=== PATIENT | female | born 1955 | race Caucasian/White ===

== ENCOUNTER 2019-10-04 09:25 | Outpatient (RCR) | payer MEDICARE, MEDICAID ==
[2019-10-04 10:41] LABS: BASOPHILS % (AUTO) 1 % (0-10); EOSINOPHILS # (AUTO) 0.3 10^3/uL (0.0-0.3); EOSINOPHILS % (AUTO) 6 % (0-10); HEMATOCRIT 34 % (35-52); HEMOGLOBIN 10.8 G/DL (11.5-16.0); LYMPHOCYTES # (AUTO) 1.6 X 10^3 (1.0-4.0); LYMPHOCYTES % (AUTO) 32 % (12-44); MEAN CORPUSCULAR HEMOGLOBIN 31 PG (25-34); MEAN CORPUSCULAR HGB CONC 32 G/DL (32-36); MEAN CORPUSCULAR VOLUME 97 FL (80-99); MEAN PLATELET VOLUME 10.5 FL (7.4-10.4); MONOCYTES # (AUTO) 0.3 X 10^3 (0.0-1.0); MONOCYTES % (AUTO) 7 % (0-12); NEUTROPHILS # (AUTO) 2.8 X 10^3 (1.8-7.8); NEUTROPHILS % (AUTO) 55 % (42-75); PLATELET COUNT 163 10^3/uL (130-400); RED CELL DISTRIBUTION WIDTH 26.2 % (10.0-14.5); WHITE BLOOD COUNT 5.1 10^3/uL (4.3-11.0)
[2019-10-04 10:56] LABS: ALANINE AMINOTRANSFERASE 15 U/L (0-55); ALBUMIN 3.8 GM/DL (3.2-4.5); ALKALINE PHOSPHATASE 82 U/L (40-136); BILIRUBIN,TOTAL 0.5 MG/DL (0.1-1.0); BUN/CREATININE RATIO 18; CALCIUM 8.9 MG/DL (8.5-10.1); CARBON DIOXIDE 26 MMOL/L (21-32); CHLORIDE 106 MMOL/L (98-107); CREATININE SERUM 0.68 MG/DL (0.60-1.30); GFR ESTIMATED > 60; GLUCOSE 107 MG/DL (70-105); POTASSIUM 4.1 MMOL/L (3.6-5.0); SODIUM 139 MMOL/L (135-145); TOTAL PROTEIN 7.2 GM/DL (6.4-8.2)
[2019-10-04 11:14] LABS: LYMPHOCYTES % (MANUAL) 33 %; NEUTROPHILS % (MANUAL) 49 %
[2019-10-04 11:15] LABS: BASOPHILS % (MANUAL) 1 %; EOSINOPHILS % (MANUAL) 2 %; METAMYELOCYTES % 1 %; MONOCYTES % (MANUAL) 6 %
[2019-10-04 11:16] LABS: ATYPICAL LYMPHOCYTES 4 %; HYPOCHROMASIA SLIGHT; MYELOCYTES % 1 %; NUCLEATED RED BLOOD CELLS 3; POLYCHROMASIA SLIGHT; TARGET CELLS SLIGHT
== END 2020-01-02 | disposition home or self-care (01) ==
LOC: ONC 09:25
PROVIDERS: ATTEND Internal Medicine Hematology & Oncology
DX: C18.2 Malignant neoplasm of ascending colon (principal); M19.91 Primary osteoarthritis, unspecified site; F17.210 Nicotine dependence, cigarettes, uncomplicated; Z79.899 Other long term (current) drug therapy; K74.60 Unspecified cirrhosis of liver; R16.1 Splenomegaly, not elsewhere classified; Z86.19 Personal history of other infectious and parasitic diseases; Z96.651 Presence of right artificial knee joint
CPT/HCPCS: 80053; 82105; 82378; 85007; 85027; 99214

== ENCOUNTER → 2019-10-10 | Outpatient (CLI) | payer MEDICARE, MEDICAID ==
[~2019-10-10] MED LIST: CATHETER FLUSH 10 ML SYR IV PRN; HOLD METFORMIN - RECEIVED CONTRAST 20 ML VIAL IV SCH; IOHEXOL 350 MG/ML 100 ML (OMNIPAQUE 350) VIAL IV ONE; NS 100 ML (IVPB) BAG IV ONE
--- NOTE | 2019-10-10 14:05 | Diagnostic Imaging Report ---
EXAMINATION: CT Chest with intravenous contrast, CT Abdomen and Pelvis without and with intravenous contrast. TECHNIQUE: Pre and post intravenous contrast axial imaging of the abdomen and pelvis and post contrast axial imaging of the chest were performed. All CT scans use one or more of the following dose optimizing techniques: automated exposure control, MA and/or KvP adjustment based on a patient size and exam type, or iterative reconstruction. HISTORY: Colon cancer COMPARISON: None available. FINDINGS: There is no edema or pneumonia. No pleural effusion. No pneumothorax. There is a vague area of groundglass in the left upper lobe measuring up to 11 mm (series 2, image 43). Heart size is normal. There are mild coronary artery calcifications. No pericardial effusion. Aorta is normal in caliber. There is no axillary or supraclavicular lymphadenopathy. There is no mediastinal lymphadenopathy. There is mild liver surface nodularity concerning for cirrhosis. There is no biliary ductal dilation. Gallbladder is surgically absent. Pancreas is normal. Spleen is enlarged. Adrenal glands are normal. Simple cyst is present in the left kidney. No suspicious renal lesions. There is no hydronephrosis. Urinary bladder is normal. Visualized bowel is normal in caliber without obstruction or inflammation. There has been a right hemicolectomy. No free fluid or air. No abdominal or pelvic lymphadenopathy. Aorta is normal in caliber without aneurysm. There are no suspicious osseus lesions. IMPRESSION: 1. No metastatic disease identified in the chest, abdomen or pelvis. 2. Vague left upper lobe groundglass nodule may be an infectious or inflammatory process. Three-month follow-up is recommended. 3. There is a cirrhotic morphology of the liver and the spleen is enlarged. Dictated by: Dictated on workstation # [id number]
== END ==
LOC: RAD FS 11:13
PROVIDERS: ATTEND Internal Medicine Hematology & Oncology
DX: C18.9 Malignant neoplasm of colon, unspecified (principal); R16.1 Splenomegaly, not elsewhere classified; R91.1 Solitary pulmonary nodule
CPT/HCPCS: 71260; 74178

== ENCOUNTER → 2020-03-06 | Outpatient (CLI) | payer MEDICARE, MEDICAID ==
--- NOTE | 2020-03-06 11:16 | Diagnostic Imaging Report ---
INDICATION: Left hip pain. FINDINGS: 2 views. There is end-stage arthritic disease with complete loss of joint space. There is flattening of the femoral head. There is sclerosis of the articulating surfaces of the acetabulum and femoral head with subcortical cystic change. No soft tissue calcifications about the hip. IMPRESSION: Advanced chronic arthritic disease left hip. No acute abnormalities. Dictated by: Dictated on workstation # [id number]
== END ==
LOC: RAD FS 09:46
PROVIDERS: ATTEND Nurse Practitioner Family
DX: M16.12 Unilateral primary osteoarthritis, left hip (principal)
CPT/HCPCS: 73502

== ENCOUNTER 2020-04-03 09:43 | Outpatient (RCR) | payer MEDICARE, MEDICAID ==
[2020-01-26 09:25] LABS: BUN/CREATININE RATIO 17; CALCIUM 8.8 MG/DL (8.5-10.1); CARBON DIOXIDE 27 MMOL/L (21-32); CHLORIDE 105 MMOL/L (98-107); CREATININE SERUM 0.71 MG/DL (0.60-1.30); GFR ESTIMATED > 60; GLUCOSE 87 MG/DL (70-105); SODIUM 139 MMOL/L (135-145)
[2020-04-03 10:13] LABS: BASOPHILS # (AUTO) 0.3 10^3/uL (0.0-0.1); BASOPHILS % (AUTO) 4 % (0-10); EOSINOPHILS # (AUTO) 0.3 10^3/uL (0.0-0.3); EOSINOPHILS % (AUTO) 3 % (0-10); HEMATOCRIT 29 % (35-52); HEMOGLOBIN 9.4 G/DL (11.5-16.0); LYMPHOCYTES # (AUTO) 2.2 X 10^3 (1.0-4.0); LYMPHOCYTES % (AUTO) 26 % (12-44); MEAN CORPUSCULAR HEMOGLOBIN 31 PG (25-34); MEAN CORPUSCULAR HGB CONC 32 G/DL (32-36); MEAN CORPUSCULAR VOLUME 95 FL (80-99); MONOCYTES # (AUTO) 1.1 X 10^3 (0.0-1.0); MONOCYTES % (AUTO) 13 % (0-12); NEUTROPHILS # (AUTO) 4.6 X 10^3 (1.8-7.8); NEUTROPHILS % (AUTO) 54 % (42-75); PLATELET COUNT 164 10^3/uL (130-400); WHITE BLOOD COUNT 8.5 10^3/uL (4.3-11.0)
[2020-04-03 10:35] LABS: ALANINE AMINOTRANSFERASE 25 U/L (0-55); ALBUMIN 3.9 GM/DL (3.2-4.5); ALKALINE PHOSPHATASE 105 U/L (40-136); BILIRUBIN,TOTAL 0.9 MG/DL (0.1-1.0); BUN/CREATININE RATIO 13; CARBON DIOXIDE 23 MMOL/L (21-32); CHLORIDE 103 MMOL/L (98-107); CREATININE SERUM 0.71 MG/DL (0.60-1.30); GFR ESTIMATED > 60; GLUCOSE 75 MG/DL (70-105); POTASSIUM 4.4 MMOL/L (3.6-5.0); SODIUM 137 MMOL/L (135-145); TOTAL PROTEIN 7.8 GM/DL (6.4-8.2)
== END 2020-04-25 | disposition home or self-care (01) ==
LOC: ONC 09:43
PROVIDERS: ATTEND Internal Medicine Hematology & Oncology
DX: C18.2 Malignant neoplasm of ascending colon (principal); M19.91 Primary osteoarthritis, unspecified site; F17.210 Nicotine dependence, cigarettes, uncomplicated; Z79.899 Other long term (current) drug therapy; K74.60 Unspecified cirrhosis of liver; R16.1 Splenomegaly, not elsewhere classified; Z86.19 Personal history of other infectious and parasitic diseases; Z96.651 Presence of right artificial knee joint
CPT/HCPCS: 80048; 80053; 82105; 82378; 85025; 99213

== ENCOUNTER → 2020-05-23 | Outpatient (CLI) | payer MEDICARE, MEDICAID ==
[~2020-05-23] MED LIST changes: -CATHETER FLUSH 10 ML SYR IV PRN; +CETI10TA17 PO; +ESCI20TA45 PO; -HOLD METFORMIN - RECEIVED CONTRAST 20 ML VIAL IV SCH; +HYDR50TA76 PO; -IOHEXOL 350 MG/ML 100 ML (OMNIPAQUE 350) VIAL IV ONE; +NAPR-1071 PO; +NITR100C PO; -NS 100 ML (IVPB) BAG IV ONE; +OMEP40CA27 PO; +PROM25TA14 PO
--- NOTE | 2020-05-23 11:11 | Diagnostic Imaging Report ---
INDICATION: Right elbow pain. Time of exam: 1006 AM 3 views of right elbow were obtained. Alignment is normal. There is a well-corticated osseous density anterior elbow, just anterior to the distal humerus best seen on the lateral view measuring 14 mm x 7 mm. This may represent an intra-articular loose body. No fractures are seen. There is no joint effusion. IMPRESSION: Probable loose body. No acute bony abnormality is detected. Dictated by: Dictated on workstation # [id number]
== END ==
LOC: RAD FS 09:49
PROVIDERS: ATTEND Nurse Practitioner Family
DX: M25.521 Pain in right elbow (principal)
CPT/HCPCS: 73080

== ENCOUNTER 2020-06-15 05:27 | Outpatient (RCR) | payer MEDICARE, MEDICAID ==
[~2020-06-15] VITALS: Ht 165 cm; Wt 102.0 kg
[~2020-06-15 05:27] MED LIST changes: +DESV25TA PO
== END 2020-06-15 12:01 | disposition home or self-care (01) ==
LOC: PREOP 05:27
PROVIDERS: ATTEND Surgery
DX: Z01.812 Encounter for preprocedural laboratory examination (principal); Z20.828 Contact with and (suspected) exposure to other viral communicable diseases
CPT/HCPCS: 87635

== ENCOUNTER 2020-06-19 06:49 | Day surgery (SDC) | payer MEDICARE, MEDICAID ==
[~2020-06-19] VITALS: Ht 165 cm; Wt 102.0 kg
[2020-06-19] VITALS (7 sets, daily range): BP systolic 92–132; BP diastolic 46–78
[2020-06-19] MEDS ORDERED: LACTATED RINGERS 1,000 ML IV ONE (07:56)
[2020-06-19] MEDS ORDERED: LACTATED RINGERS 1,000 ML IV PRN (08:00)
[2020-06-19] MEDS ORDERED: HURRICAINE EXT TUBE (BENZOCAINE) XX PRN (08:00)
[2020-06-19] MEDS ORDERED: MIDAZOLAM 2 MG/2 ML (VERSED) VIAL ONE (09:03)
[2020-06-19] MEDS ORDERED: PROPOFOL INJECTION 50 ML IV ONE (09:03)
[2020-06-19] MEDS ORDERED: proPOfol 200 MG/20 ML (DIPRIVAN) VIAL IV ONE (09:03)
[2020-06-19] MEDS ORDERED: HURRICAINE EXT TUBE (BENZOCAINE) ONE (09:27)
--- NOTE | 2020-06-19 09:45 | Progress Note-Post Operative ---
Post-Operative Progess Note Surgeon (s)/Build Engineer (s) Surgeon LYDIA MCCOLLUM DO Build Engineer: na Pre-Operative Diagnosis GERD, dysphagia, screening colonoscopy Post-Operative Diagnosis small hiatal hernia, GERD, colon polyp sigmoid x 2 Procedure & Operative Findings Date of Procedure 06/19/20 Procedure Performed/Findings EGD c biopsies, colonoscopy c cold biopsy polypectomy x2 Anesthesia Type per AUTOMOTIVE COLLISION ESTIMATOR Estimated Blood Loss Estimated blood loss (mL): none Specimens/Packing Specimens Removed antrum, GE junction, sigmoid polyps x2 LYDIA MCCOLLUM DO Jun 19, 2020 09:45
--- NOTE | 2020-06-19 09:47 | Discharge Inst-Simple/Standard ---
Discharge Inst-Standard Patient Instructions/Follow Up Plan of Care/Instructions/FU: 3 weeks Aileen Activity as Tolerated: No Discharge Diet: Regular Diet LYDIA MCCOLLUM DO Jun 19, 2020 09:47
--- NOTE | 2020-06-19 12:42 | Anesthesia-General Post-Op ---
MAC Patient Condition Mental Status/LOC: Same as Preop Cardiovascular: Satisfactory Nausea/Vomiting: Absent Respiratory: Satisfactory Pain: Controlled Complications: Absent Post Op Complications Complications None Follow Up Care/Instructions Patient Instructions None needed. Anesthesiology Discharge Order Discharge Order Patient is doing well, no complaints, stable vital signs, no apparent adverse anesthesia problems. No complications reported per nursing. CANDIS BAJWA CRNA Jun 19, 2020 12:42
--- NOTE | 2020-06-19 14:09 | OPERATIVE REPORT ---
DATE OF SERVICE: 06/19/2020 PREOPERATIVE DIAGNOSES: Gastroesophageal reflux disease, dysphagia, screening colonoscopy with history of colon cancer. POSTOPERATIVE DIAGNOSES: Small hiatal hernia, gastroesophageal reflux disease, colon polyps x2 of the sigmoid colon. PROCEDURE: EGD with biopsies, colonoscopy with cold biopsy polypectomy x2. SURGEON: Lydia Gallagher DO ANESTHESIA: Per CRITICAL CARE CNS. ESTIMATED BLOOD LOSS: None. COMPLICATIONS: None. SPECIMENS: Antrum, GE junction and sigmoid colon polyp x2. INDICATIONS: The patient is a 65-year-old female with history of colon cancer needing screening colonoscopy. She also has some GERD symptoms and dysphagia. She understands risks and benefits of procedure and wished to proceed with procedure. Consent was signed in the chart. DESCRIPTION OF PROCEDURE: The patient was taken to the endoscopy suite, placed in the left lateral recumbent position. Timeout was performed. Scope was inserted in mouth, down the esophagus, stomach and into the duodenum without difficulty. There were no polyps, masses or ulcerations within the duodenum. Scope was then slowly retracted back into the stomach where it was further insufflated. No polyps, masses or ulcerations. Biopsy of the antrum was obtained. Scope was retroflexed noting a small hiatal hernia, no other pathology. Scope was returned to its normal position, slowly withdrawn until completely removed into the distal esophagus. Biopsy of the GE junction was obtained. There were no polyps, masses or ulcerations. Scope was then slowly retracted back until completely removed. Digital rectal exam was performed. There were no palpable polyps, masses or ulcerations. Scope was inserted in the rectum, advanced all the way to the ileocolonic anastomosis. No polyps, masses or ulcerations. Prep was adequate except for some hard stool in the right colon, which was able to be moved around and the patient had a fairly adequate visualization of the right colon. Scope was then slowly retracted back. No polyps, masses or ulcerations from the ileocolonic anastomosis proximal to the transverse and descending colon. In the sigmoid colon, there were 2 very small minute polyps, which cold biopsy polypectomies were performed. Scope was then continuously retracted back into the rectum, where it was also retroflexed noting no other pathology. Scope was returned to its normal position, slowly withdrawn until completely removed. The patient tolerated procedure well without any complications. She was taken to recovery room in stable condition. RECOMMENDATIONS: The patient will continue on current medications. She will follow up on pathology. The patient will need repeat screening colonoscopy per guidelines. Any issues before that be seen at that time. The patient will follow up in the office in approximately 3 weeks to discuss symptoms and pathology. Job ID: [id number] DocumentID: [id number] Dictated Date: 06/19/2020 09:51:33 [employer] Date: 06/19/2020 14:09:14 Dictated By: LYDIA GALLAGHER DO
== END 2020-06-19 10:29 | disposition home or self-care (01) ==
LOC: ENDO 06:49
PROVIDERS: ATTEND Surgery
DX: Z12.11 Encounter for screening for malignant neoplasm of colon (principal); K63.5 Polyp of colon; K44.9 Diaphragmatic hernia without obstruction or gangrene; K21.00 Gastro-esophageal reflux disease with esophagitis, without bleeding; K29.50 Unspecified chronic gastritis without bleeding; J40 Bronchitis, not specified as acute or chronic; G62.9 Polyneuropathy, unspecified; F41.9 Anxiety disorder, unspecified; F32.9 Major depressive disorder, single episode, unspecified; K74.60 Unspecified cirrhosis of liver; F17.210 Nicotine dependence, cigarettes, uncomplicated; Z79.899 Other long term (current) drug therapy; Z88.8 Allergy status to other drugs, medicaments and biological substances; Z88.2 Allergy status to sulfonamides; Z88.1 Allergy status to other antibiotic agents; Z88.5 Allergy status to narcotic agent; Z91.013 Allergy to seafood; Z86.73 Personal history of transient ischemic attack (TIA), and cerebral infarction without residual deficits; Z85.038 Personal history of other malignant neoplasm of large intestine; Z82.49 Family history of ischemic heart disease and other diseases of the circulatory system; Z83.3 Family history of diabetes mellitus
CPT/HCPCS: 88305

== ENCOUNTER 2020-08-04 11:48 | Emergency (ER) | payer MEDICARE, MEDICAID ==
--- NOTE | 2020-08-04 12:41 | ED GI ---
General Chief Complaint: Abdominal/GI Problems Stated Complaint: ABD PAIN; COUGH; RUNNY NOSE Nursing Triage Note: Pt complaining of left sided abd pain. Pt states that she was able to have a bowel movement yesterday but hasn't had one yet today and is concerned. Sepsis Screen: No Definite Risk Source of Information: Patient History of Present Illness Date Seen by Provider: Aug 04, 2020 Time Seen by Provider: 11:56 Initial Comments 65-year-old female presenting with complaints of left-sided abdominal pain. She was feeling bloated and having trouble going to the bathroom. She states that she takes lactulose she has difficulty having a bowel movement. She has a history of colon cancer and despite having a recent colonoscopy where they only had 2 polyps that were noncancerous she is concerned that her cancer has retu rned. She feels like her abdomen is bloated to the point that she can't breath. She also feels like she has some cough and runny nose at times. She was concerned that her pain and bloating with difficulty having bowel movements without taking medicine were related to recurrent cancer. Allergies and Home Medications Allergies Coded Allergies: ledipasvir (Verified Allergy, Intermediate, SEDATION, 05/08/20) sofosbuvir (Verified Allergy, Intermediate, SEDATION, 05/08/20) hydrocodone (Verified Allergy, Mild, AGITATION, 05/08/20) ciprofloxacin (Verified Allergy, Unknown, 05/08/20) Home Medications Cetirizine HCl 10 Mg Tablet, 10 MG PO DAILY, (Reported) Desvenlafaxine Succinate 25 Mg Tab.er.24h, 25 MG PO HS, (Reported) Escitalopram Oxalate 20 Mg Tablet, 20 MG PO DAILY, (Reported) Hydroxyzine HCl 50 Mg Tablet, 50 MG PO BID, (Reported) Naproxen 500 Mg Tablet, 500 MG PO PRN, (Reported) Omeprazole 40 Mg Capsule.dr, 40 MG PO DAILY, (Reported) Promethazine HCl 25 Mg Tablet, 25 MG PO Q6H PRN for NAUSEA/VOMITING, (Reported) Patient Home Medication List Home Medication List Reviewed: Yes Review of Systems Review of Systems Constitutional: No chills, No fever; malaise EENTM: Nose Congestion (mild) Respiratory: Cough (intermittent), Shortness of Air (when her abdomen is bloated and she feels constipated) Cardiovascular: No Symptoms Reported Gastrointestinal: See HPI Genitourinary: No Symptoms Reported Musculoskeletal: no symptoms reported Skin: no symptoms reported Psychiatric/Neurological: Anxiety Past Suhpber-Oqxjsp-Lkifjb Hx Past Med/Social Hx: Reviewed Nursing Past Med/Soc Hx Patient Social History Alcohol Use: Denies Use Recreational Drug Use: No Smoking Status: Current Everyday Smoker Type Used: Cigarettes 2nd Hand Smoke Exposure: Yes Recent Foreign Travel: No Contact w/Someone Who Travel: No Recent Infectious Disease Expo: No Recent Hopitalizations: No Physical Abuse: No Sexual Abuse: No Immunizations Up To Date Date of Pneumonia Vaccine: May 16, 2019 Seasonal Allergies Seasonal Allergies: Yes Past Medical History Surgeries: Yes (COLON RESECTION, BACK X2, KNEE, EXPLORATORY-INFECTION BLADDER) Gallbladder Respiratory: Yes Chronic Bronchitis Cardiac: No Neurological: Yes Headaches /Migraines, TIA Sexually Transmitted Disease: No HIV/AIDS: No Genitourinary: Yes UTI-Chronic Gastrointestinal: No (HX COLON CANCER) Gastroesophageal Reflux, Chronic Constipation Musculoskeletal: Yes (L HIP PAIN) Arthritis, Chronic Back Pain Endocrine: No HEENT: Yes (GLASSES, DENTURES) Loss of Vision: Denies Hearing Impairment: Denies Cancer: Yes Colon Did You Recieve Any Treatments: No What Type of Treatment Did You: Surgical Intervention Psychosocial: Yes Anxiety, Depression Integumentary: No Blood Disorders: No (HEP C) Adverse Reaction/Blood Tranf: No (HAS HAD BLOOD WITH NO REACTION) Physical Exam Vital Signs Vital Signs - First Documented 08/04/20 11:55 Temp 36.9 Pulse 91 Resp 18 B/P (MAP) 147/66 (93) Pulse Ox 99 O2 Delivery Room Air Capillary Refill : Less Than 3 Seconds Height/Weight/BMI Height: '" Weight: lbs. oz. kg; 37.46 BMI Method: General Appearance: WD/WN, mild distress (worried about her bowel movements and thinks she has colon cancer again) Neck: non-tender, full range of motion, supple Respiratory: chest non-tender, lungs clear, normal breath sounds, no respiratory distress, no accessory muscle use Cardiovascular: normal peripheral pulses, regular rate, rhythm Gastrointestinal: normal bowel sounds, soft, no pulsatile mass, tenderness (LLQ and epigastric) Neurologic/Psychiatric: alert, oriented x 3 Skin: normal color, warm/dry Progress/Results/Core Measures Results/Orders Lab Results Laboratory Tests Test 08/04/20 12:25 08/04/20 13:11 Range/Units White Blood Count 6.8 4.3-11.0 10^3/uL Red Blood Count 2.71 L 4.35-5.85 10^6/uL Hemoglobin 8.1 L 11.5-16.0 G/DL Hematocrit 25 L 35-52 % Mean Corpuscular Volume 93 80-99 FL Mean Corpuscular Hemoglobin 30 25-34 PG Mean Corpuscular Hemoglobin Concent 32 32-36 G/DL Red Cell Distribution Width 29.1 H 10.0-14.5 % Platelet Count 151 130-400 10^3/uL Mean Platelet Volume 7.4-10.4 FL Immature Granulocyte % (Auto) 12 % Neutrophils (%) (Auto) 55 42-75 % Lymphocytes (%) (Auto) 16 12-44 % Monocytes (%) (Auto) 13 H 0-12 % Eosinophils (%) (Auto) 2 0-10 % Basophils (%) (Auto) 3 0-10 % Neutrophils # (Auto) 3.7 1.8-7.8 X 10^3 Lymphocytes # (Auto) 1.1 1.0-4.0 X 10^3 Monocytes # (Auto) 0.9 0.0-1.0 X 10^3 Eosinophils # (Auto) 0.2 0.0-0.3 10^3/uL Basophils # (Auto) 0.2 H 0.0-0.1 10^3/uL Immature Granulocyte # (Auto) 0.8 H 0.0-0.1 10^3/uL Sodium Level 139 135-145 MMOL/L Potassium Level 3.9 3.6-5.0 MMOL/L Chloride Level 104 98-107 MMOL/L Carbon Dioxide Level 26 21-32 MMOL/L Anion Gap 9 5-14 MMOL/L Blood Urea Nitrogen 9 7-18 MG/DL Creatinine 0.62 0.60-1.30 MG/DL Estimat Glomerular Filtration Rate > 60 BUN/Creatinine Ratio 15 Glucose Level 135 H 70-105 MG/DL Calcium Level 8.7 8.5-10.1 MG/DL Corrected Calcium 9.0 8.5-10.1 MG/DL Total Bilirubin 1.3 H 0.1-1.0 MG/DL Aspartate Amino Transf (AST/SGOT) 45 H 5-34 U/L Alanine Aminotransferase (ALT/SGPT) 18 0-55 U/L Alkaline Phosphatase 103 40-136 U/L Total Protein 7.2 6.4-8.2 GM/DL Albumin 3.6 3.2-4.5 GM/DL Urine Color YELLOW Urine Clarity CLEAR Urine pH 6.0 5-9 Urine Specific [place] 1.025 H 1.016-1.022 Urine Protein NEGATIVE NEGATIVE Urine Glucose (UA) NEGATIVE NEGATIVE Urine Ketones NEGATIVE NEGATIVE Urine Nitrite NEGATIVE NEGATIVE Urine Bilirubin 1+ H NEGATIVE Urine Urobilinogen 4.0 < = 1.0 MG/DL Urine Leukocyte Esterase NEGATIVE NEGATIVE Urine RBC (Auto) NEGATIVE NEGATIVE Urine RBC NONE /HPF Urine WBC 2-5 /HPF Urine Squamous Epithelial Cells 0-2 /HPF Urine Crystals NONE /LPF Urine Bacteria TRACE /HPF Urine Casts NONE /LPF Urine Mucus SMALL H /LPF Urine Yeast TRACE /HPF Urine Culture Indicated NO My Orders Orders - LISANDRA HELMS MD Comprehensive Metabolic Panel (08/04/20 12:36) Lipase (08/04/20 12:36) Ua Culture If Indicated (08/04/20 12:36) Ed Iv/Invasive Line Start (08/04/20 12:36) Cbc With Automated Diff (08/04/20 12:36) Ct Abdomen/Pelvis Wo (08/04/20 12:36) Vital Signs/I&O 08/04/20 08/04/20 11:55 14:23 Temp 36.9 Pulse 91 90 Resp 18 16 B/P (MAP) 147/66 (93) 149/63 Pulse Ox 99 96 O2 Delivery Room Air Room Air Blood Pressure Mean: 93 Progress Progress Note #1: Progress Note took basic labs with urinalysis. Obtain a CT scan of the abdomen and pelvis without contrast since patient reports having small veins and would not be able to have IV contrast. Progress Note #2: Time: 13:[address] scan does not show any acute significant abnormality to account for her symptoms. Labs show anemia with HGB down to 8.1. UA without signs of infection. No mass or obstruction on CT to explain her complaint of bloating. Will reassure pt that she has no masses seen on CT to say she has recurrent cancer but will have her see if she needs to maybe increase lactulose to 3 times a day or check with clinic about how to get her stools more regular and keep from being so bloated. Diagnostic Imaging Diagonstic Imaging: CT Plain Films/CT/US/NM/MRI: abdomen, pelvis Comments NAME: SHANNON [facility]ESSLER [facility] REC#: [id number] PT STATUS: REG ER : 1955 PHYSICIAN: LISANDRA HELMS MD ADMIT DATE: 08/04/20/ER FS Draft Date of Exam:08/04/20 CT ABDOMEN/PELVIS WO PROCEDURE: CT abdomen and pelvis without contrast. TECHNIQUE: Multiple contiguous axial images were obtained through the abdomen and pelvis without the use of intravenous contrast. Auto Exposure Controls were utilized during the CT exam to meet ALARA standards for radiation dose reduction. INDICATION: Abdominal pain. Bloating. Nausea. COMPARISON: CT abdomen and pelvis 10/10/2019. FINDINGS: Calcified granulomas in the left lung base and spleen. Splenomegaly measuring up to 23 cm. Nodular cirrhotic contour of the liver. Cholecystectomy. The pancreas, adrenals, right kidney, collecting systems and bladder are negative on this noncontrast exam. Reproductive structures are grossly unremarkable. No evidence of appendicitis. No free intraperitoneal air/fluid, lymphadenopathy or evidence of bowel obstruction. No acute osseous findings. IMPRESSION: 1. Nodular cirrhotic contour of the liver and increasing splenomegaly. 2. Evidence of prior granulomatous infection. 3. No acute CT findings of the abdomen or pelvis on this noncontrast exam. Dictated on workstation # [id number] Dict: 08/04/20 1310 Trans: 08/04/20 1335 [facility] [id number] Interpreted by: OSBALDO LORA MD Electronically signed by: Departure Impression Primary Impression: Abdominal bloating with cramps Additional Impressions: Decreased stooling Anemia Qualified Codes: D64.9 - Anemia, unspecified Cough Disposition: HOME, SELF-CARE Condition: Stable Departure-Patient Inst. Decision time for Depature: 14:19 Referrals: [facility] [place] (PCP) Primary Care Physician SHARATH GARCÍA APRN (Family) Primary Care Physician Patient Instructions: Abdominal Pain, Adult ED, Gas and Bloating, Constipation, Adult (DC) Add. Discharge Instructions: Check back with clinic and you may need to increase your frequency of Lactulose to help keep your stools soft and regular. For at least the next few days increase the Lactulose to 3 times a day to help get your bowels moving better. No mass or cancer seen on CT scan today. All discharge instructions reviewed with patient and/or family. Voiced understanding. LISANDRA HELMS MD Aug 04, 2020 12:41
[2020-08-04 12:48] LABS: BASOPHILS # (AUTO) 0.2 10^3/uL (0.0-0.1); BASOPHILS % (AUTO) 3 % (0-10); EOSINOPHILS # (AUTO) 0.2 10^3/uL (0.0-0.3); EOSINOPHILS % (AUTO) 2 % (0-10); HEMATOCRIT 25 % (35-52); HEMOGLOBIN 8.1 G/DL (11.5-16.0); LYMPHOCYTES # (AUTO) 1.1 X 10^3 (1.0-4.0); LYMPHOCYTES % (AUTO) 16 % (12-44); MEAN CORPUSCULAR HEMOGLOBIN 30 PG (25-34); MEAN CORPUSCULAR HGB CONC 32 G/DL (32-36); MEAN CORPUSCULAR VOLUME 93 FL (80-99); MONOCYTES # (AUTO) 0.9 X 10^3 (0.0-1.0); MONOCYTES % (AUTO) 13 % (0-12); NEUTROPHILS # (AUTO) 3.7 X 10^3 (1.8-7.8); NEUTROPHILS % (AUTO) 55 % (42-75); PLATELET COUNT 151 10^3/uL (130-400); WHITE BLOOD COUNT 6.8 10^3/uL (4.3-11.0)
[2020-08-04 13:03] LABS: ALANINE AMINOTRANSFERASE 18 U/L (0-55); ALBUMIN 3.6 GM/DL (3.2-4.5); ALKALINE PHOSPHATASE 103 U/L (40-136); BILIRUBIN,TOTAL 1.3 MG/DL (0.1-1.0); BUN/CREATININE RATIO 15; CALCIUM 8.7 MG/DL (8.5-10.1); CARBON DIOXIDE 26 MMOL/L (21-32); CHLORIDE 104 MMOL/L (98-107); CREATININE SERUM 0.62 MG/DL (0.60-1.30); GFR ESTIMATED > 60; GLUCOSE 135 MG/DL (70-105); POTASSIUM 3.9 MMOL/L (3.6-5.0); SODIUM 139 MMOL/L (135-145); TOTAL PROTEIN 7.2 GM/DL (6.4-8.2)
[2020-08-04 13:23] LABS: BACTERIA,URINE TRACE /HPF; BILIRUBIN,URINE 1+ (NEGATIVE); CLARITY,URINE CLEAR; COLOR,URINE YELLOW; GLUCOSE, URINE (UA) NEGATIVE (NEGATIVE); KETONES,URINE NEGATIVE (NEGATIVE); LEUKOCYTE ESTERASE ,URINE NEGATIVE (NEGATIVE); NITRITE,URINE NEGATIVE (NEGATIVE); PROTEIN,URINE NEGATIVE (NEGATIVE)
[2020-08-04 13:24] LABS: SQUAMOUS EPITHELIAL CELL,UR 0-2 /HPF; YEAST,URINE TRACE /HPF
--- NOTE | 2020-08-04 13:36 | Diagnostic Imaging Report ---
PROCEDURE: CT abdomen and pelvis without contrast. TECHNIQUE: Multiple contiguous axial images were obtained through the abdomen and pelvis without the use of intravenous contrast. Auto Exposure Controls were utilized during the CT exam to meet ALARA standards for radiation dose reduction. INDICATION: Abdominal pain. Bloating. Nausea. COMPARISON: CT abdomen and pelvis 10/10/2019. FINDINGS: Calcified granulomas in the left lung base and spleen. Splenomegaly measuring up to 23 cm. Nodular cirrhotic contour of the liver. Cholecystectomy. The pancreas, adrenals, right kidney, collecting systems and bladder are negative on this noncontrast exam. Reproductive structures are grossly unremarkable. No evidence of appendicitis. No free intraperitoneal air/fluid, lymphadenopathy or evidence of bowel obstruction. No acute osseous findings. IMPRESSION: 1. Nodular cirrhotic contour of the liver and increasing splenomegaly. 2. Evidence of prior granulomatous infection. 3. No acute CT findings of the abdomen or pelvis on this noncontrast exam. Dictated by: Dictated on workstation # [id number]
[2020-08-04 14:23] VITALS: BP 149/63
[2020-08-04 14:46] LABS: LIPASE 61 U/L (8-78)
== END 2020-08-04 14:26 | disposition home or self-care (01) ==
LOC: EDUNIT# 11:48 → ER FS 11:50
DX: R10.13 Epigastric pain (principal); R19.15 Other abnormal bowel sounds; D64.9 Anemia, unspecified; R05 Cough; K21.9 Gastro-esophageal reflux disease without esophagitis; F32.9 Major depressive disorder, single episode, unspecified; F41.9 Anxiety disorder, unspecified; Z85.038 Personal history of other malignant neoplasm of large intestine; F17.210 Nicotine dependence, cigarettes, uncomplicated; Z88.5 Allergy status to narcotic agent; Z88.1 Allergy status to other antibiotic agents; Z88.8 Allergy status to other drugs, medicaments and biological substances; Z86.73 Personal history of transient ischemic attack (TIA), and cerebral infarction without residual deficits
CPT/HCPCS: 36415; 74176; 80053; 81000; 83690; 85025

== ENCOUNTER 2020-08-27 08:57 | Day surgery (SDC) | payer MEDICARE, MEDICAID ==
[~2020-08-27] VITALS: Ht 165.1 cm; Wt 100.7 kg
[2020-08-27] VITALS (11 sets, daily range): BP systolic 115–147; BP diastolic 65–81
[~2020-08-27 08:57] MED LIST changes: -ESCI20TA45 PO; +ESCI20TA56 PO
[2020-08-27] MEDS ORDERED: CATHETER FLUSH 10 ML SYR IV PRN (09:45)
[2020-08-27] MEDS ORDERED: NS IV 1000 ML 1,000 ML IV STA (09:46)
[2020-08-27] MEDS ORDERED: fentaNYL INJECTION 100 MCG/2 ML AMP IVP ONE (10:00)
[2020-08-27] MEDS ORDERED: MIDAZOLAM 2 MG/2 ML (VERSED) VIAL IVP ONE (10:00)
[2020-08-27] MEDS ORDERED: LIDOCAINE 1% INJ 20 ML 20 ML VIAL INJ ONE (10:00)
[2020-08-27 10:03] LABS: ABSOLUTE RETIC # 91 10e9/uL (24-90); BASOPHILS # (AUTO) 0.2 10^3/uL (0.0-0.1); BASOPHILS % (AUTO) 2 % (0-10); EOSINOPHILS # (AUTO) 0.3 10^3/uL (0.0-0.3); EOSINOPHILS % (AUTO) 3 % (0-10); HEMATOCRIT 27 % (35-52); HEMOGLOBIN 8.3 g/dL (11.5-16.0); LYMPHOCYTES # (AUTO) 1.6 10^3/uL (1.0-4.0); LYMPHOCYTES % (AUTO) 16 % (12-44); MEAN CORPUSCULAR HEMOGLOBIN 29 pg (25-34); MEAN CORPUSCULAR HGB CONC 31 g/dL (32-36); MEAN CORPUSCULAR VOLUME 93 fL (80-99); MONOCYTES # (AUTO) 1.3 10^3/uL (0.0-1.0); MONOCYTES % (AUTO) 13 % (0-12); NEUTROPHILS # (AUTO) 5.2 10^3/uL (1.8-7.8); NEUTROPHILS % (AUTO) 53 % (42-75); PLATELET COUNT 160 10^3/uL (130-400); RETICULOCYTE % 3.17 % (0.50-2.40); WHITE BLOOD COUNT 9.9 10^3/uL (4.3-11.0)
[2020-08-27] MEDS ORDERED: MIDAZOLAM 2 MG/2 ML (VERSED) VIAL ONE (10:07)
[2020-08-27] MEDS ORDERED: LIDOCAINE 1% INJ 20 ML 20 ML VIAL ONE (10:07)
[2020-08-27] MEDS ORDERED: fentaNYL INJECTION 100 MCG/2 ML AMP ONE (10:07)
[2020-08-27] MEDS ORDERED: NS IV 1000 ML 1,000 ML ONE (10:08)
[2020-08-27 10:28] LABS: INR 1.2 (0.8-1.4); PROTHROMBIN TIME PATIENT 15.3 SEC (12.2-14.7)
--- NOTE | 2020-08-27 11:17 | NUR ---
TO AMB SURG FROM RADIOLOGY PER CART. ALERT, RATES CHRONIC ABD/BACK PAIN 3. DENIES PAIN AT PROCEDURE SITE MID LOWER BACK. FAINT, PINK PEA SIZED AREA OF DRAINAGE ON GAUZE/OPSITE DRESSING, BORDER MARKED. PO FLUID AND CRACKERS PROVIDED.
[2020-08-27 11:39] LABS: BAND NEUTROPHILS 20 %; BASOPHILS % (MANUAL) 0 %; EOSINOPHILS % (MANUAL) 3 %; LYMPHOCYTES % (MANUAL) 24 %; MONOCYTES % (MANUAL) 5 %; MYELOCYTES % 5 %; NEUTROPHILS % (MANUAL) 43 %; POIKILOCYTOSIS SLIGHT; POLYCHROMASIA SLIGHT
[2020-08-27 11:40] LABS: ANISOCYTOSIS MODERATE; ELLIPT/OVALOCYTES SLIGHT; MICROCYTOSIS MODERATE; TEAR DROP CELLS MODERATE
[2020-08-27 11:44] LABS: NUCLEATED RED BLOOD CELLS 5
--- NOTE | 2020-08-27 13:00 | NUR ---
NO CHANGE IN SITE OR PAIN ASSESSMENTS. TAKING PO FLUIDS WITHOUT PROBLEM. UP WITH ASSIST TO BR PER HER MOTORIZED WC. REQUESTING DISMISSAL.
--- NOTE | 2020-08-27 13:06 | Diagnostic Imaging Report ---
INDICATION: Pancytopenia. Patient presents for CT-guided bone marrow biopsy. DETAILS OF THE PROCEDURE: The patient was brought to the CT suite and placed on the table in the prone position. Axial imaging through the pelvis was performed to evaluate for an appropriate entry site. The skin of the posterior low back was prepped and draped in the usual sterile fashion. A small amount of 1% lidocaine was utilized for local anesthesia. A bone marrow biopsy needle was advanced and placed with its tip along the posterior cortex of the right iliac bone. The bone marrow needle was then advanced through the cortex into the marrow utilizing the bone marrow drill. Three bone marrow aspirates were obtained. Next, the drill was reattached to the needle and a core biopsy was obtained. The needle was withdrawn and hemostasis was obtained using manual compression. The procedure was performed utilizing conscious sedation with Radiology nursing and constant patient monitoring. The patient was given 1.5 mg of Versed intravenously and 100 mcg of fentanyl intravenously. The total procedure time was 10 minutes. The patient tolerated the procedure well and left the Department in stable condition. IMPRESSION: Successful CT-guided bone marrow aspiration and biopsy utilizing conscious sedation. Dictated by: Dictated on workstation # [id number]
--- NOTE | 2020-08-27 15:08 | Pre-Op Note & Conscious Sedat ---
Pre-Operative Progress Note H&P Reviewed The H&P was reviewed, patient examined and no changes noted. Date H&P Reviewed: Aug 27, 2020 Time H&P Reviewed: 09:00 Pre-Op Diagnosis: pancytopenia Conscious Sedation Pre-Proced Time 09:00 ASA Score 2 For ASA 3 and 4: Consider anesthesia and medical clearance. Also, for patients with a history of failed moderate sedation consider anesthesia. Airway Lungs Heart ASA score ASA 1: a normal healthy patient ASA 2: a patient with a mild systemic disease (mid diabetes, controlled hypertension, obesity ASA 3: a patient with a severe systemic disease that limits activity (angina, COPD, prior Myocardial infarction) ASA 4: a patient with an incapacitating disease that is a constant threat to life (CHF, renal failure) ASA 5: a moribund patient not expected to survive 24 hrs. (ruptured aneurysm) ASA 6: a declared brain- patient whose organs are being harvested. For emergent operations, add the letter E after the classification Mallampati Classification Grade 2 Sedation Plan Analgesia, Amnesia, Plan communicated to team members, Discussed options with patient/fam, Discussed risks with patient/fam The patient is an appropriate candidate to undergo the planned procedure, sedation, and anesthesia. The patient immediately re-assessed prior to indication. MARZENA MCGUIRE MD Aug 27, 2020 15:08
== END 2020-08-27 13:22 | disposition home or self-care (01) ==
LOC: RAD 08:57 → SDC 11:18 → RAD 13:22
PROVIDERS: ATTEND Internal Medicine Hematology & Oncology
DX: D64.9 Anemia, unspecified (principal); D61.818 Other pancytopenia; F41.9 Anxiety disorder, unspecified; K21.9 Gastro-esophageal reflux disease without esophagitis; F32.9 Major depressive disorder, single episode, unspecified; N39.46 Mixed incontinence; Z79.899 Other long term (current) drug therapy; Z88.1 Allergy status to other antibiotic agents; Z88.2 Allergy status to sulfonamides; Z88.5 Allergy status to narcotic agent; Z88.8 Allergy status to other drugs, medicaments and biological substances; Z91.013 Allergy to seafood
CPT/HCPCS: 36415; 38222; 77012; 81270; 85007; 85027; 85045; 85610; 85730; 88237; 88264; 99156

== ENCOUNTER 2020-10-02 08:56 | Outpatient (RCR) | payer MEDICARE, MEDICAID ==
[2020-08-20 10:16] LABS: HEMOGLOBIN 8.2 g/dL (11.5-16.0)
[2020-08-20 10:18] LABS: BASOPHILS # (AUTO) 0.3 10^3/uL (0.0-0.1); BASOPHILS % (AUTO) 3 % (0-10); EOSINOPHILS # (AUTO) 0.3 10^3/uL (0.0-0.3); EOSINOPHILS % (AUTO) 2 % (0-10); HEMATOCRIT 26 % (35-52); LYMPHOCYTES # (AUTO) 1.9 10^3/uL (1.0-4.0); LYMPHOCYTES % (AUTO) 15 % (12-44); MEAN CORPUSCULAR HEMOGLOBIN 30 pg (25-34); MEAN CORPUSCULAR HGB CONC 32 g/dL (32-36); MEAN CORPUSCULAR VOLUME 93 fL (80-99); MONOCYTES # (AUTO) 1.7 10^3/uL (0.0-1.0); MONOCYTES % (AUTO) 13 % (0-12); NEUTROPHILS # (AUTO) 6.3 10^3/uL (1.8-7.8); NEUTROPHILS % (AUTO) 49 % (42-75); PLATELET COUNT 165 10^3/uL (130-400); WHITE BLOOD COUNT 12.8 10^3/uL (4.3-11.0)
[2020-08-20 10:45] LABS: ALANINE AMINOTRANSFERASE 27 U/L (0-55); ALBUMIN 3.6 GM/DL (3.2-4.5); ALKALINE PHOSPHATASE 99 U/L (40-136); BILIRUBIN,TOTAL 1.2 MG/DL (0.1-1.0); BUN/CREATININE RATIO 13; CALCIUM 8.9 MG/DL (8.5-10.1); CARBON DIOXIDE 25 MMOL/L (21-32); CHLORIDE 101 MMOL/L (98-107); CREATININE SERUM 0.67 MG/DL (0.60-1.30); GFR ESTIMATED > 60; GLUCOSE 112 MG/DL (70-105); POTASSIUM 4.4 MMOL/L (3.6-5.0); SODIUM 134 MMOL/L (135-145); TOTAL PROTEIN 7.7 GM/DL (6.4-8.2)
[2020-08-20 11:04] LABS: ABSOLUTE RETIC # 72 10e9/uL (24-90); RETICULOCYTE % 2.58 % (0.50-2.40)
[2020-08-20 11:44] LABS: BAND NEUTROPHILS 19 %; BASOPHILS % (MANUAL) 0 %; EOSINOPHILS % (MANUAL) 6 %; LYMPHOCYTES % (MANUAL) 21 %; METAMYELOCYTES % 2 %; MONOCYTES % (MANUAL) 3 %; MYELOCYTES % 9 %; NEUTROPHILS % (MANUAL) 40 %
[2020-08-20 11:45] LABS: ANISOCYTOSIS MODERATE; ELLIPT/OVALOCYTES SLIGHT; MICROCYTOSIS MODERATE; POIKILOCYTOSIS SLIGHT; POLYCHROMASIA SLIGHT; TEAR DROP CELLS MODERATE
[2020-08-20 11:47] LABS: NUCLEATED RED BLOOD CELLS 5
[2020-08-21 09:48] LABS: BASOPHILS # (AUTO) 0.3 10^3/uL (0.0-0.1); BASOPHILS % (AUTO) 2 % (0-10); EOSINOPHILS # (AUTO) 0.3 10^3/uL (0.0-0.3); EOSINOPHILS % (AUTO) 3 % (0-10); HEMATOCRIT 25 % (35-52); HEMOGLOBIN 7.8 g/dL (11.5-16.0); LYMPHOCYTES # (AUTO) 1.6 10^3/uL (1.0-4.0); LYMPHOCYTES % (AUTO) 15 % (12-44); MEAN CORPUSCULAR HEMOGLOBIN 29 pg (25-34); MEAN CORPUSCULAR HGB CONC 31 g/dL (32-36); MEAN CORPUSCULAR VOLUME 93 fL (80-99); MONOCYTES # (AUTO) 1.4 10^3/uL (0.0-1.0); MONOCYTES % (AUTO) 14 % (0-12); NEUTROPHILS % (AUTO) 49 % (42-75); PLATELET COUNT 170 10^3/uL (130-400); WHITE BLOOD COUNT 10.2 10^3/uL (4.3-11.0)
[2020-08-21 10:00] LABS: ABSOLUTE RETIC # 69 10e9/uL (24-90); RETICULOCYTE % 2.58 % (0.50-2.40)
[2020-08-21 10:24] LABS: BAND NEUTROPHILS 15 %; BASOPHILS % (MANUAL) 2 %; EOSINOPHILS % (MANUAL) 3 %; LYMPHOCYTES % (MANUAL) 23 %; METAMYELOCYTES % 1 %; MONOCYTES % (MANUAL) 5 %; MYELOCYTES % 11 %; NEUTROPHILS % (MANUAL) 40 %
[2020-08-21 10:25] LABS: ANISOCYTOSIS MODERATE; ELLIPT/OVALOCYTES SLIGHT; MICROCYTOSIS MODERATE; POIKILOCYTOSIS SLIGHT; POLYCHROMASIA SLIGHT; TEAR DROP CELLS MODERATE
[2020-08-21 10:31] LABS: NUCLEATED RED BLOOD CELLS 5
[2020-09-12 10:44] LABS: MONOCYTES # (AUTO) 0.9 10^3/uL (0.0-1.0)
[2020-09-12 10:46] LABS: BASOPHILS # (AUTO) 0.2 10^3/uL (0.0-0.1); BASOPHILS % (AUTO) 2 % (0-10); EOSINOPHILS # (AUTO) 0.2 10^3/uL (0.0-0.3); EOSINOPHILS % (AUTO) 3 % (0-10); HEMATOCRIT 25 % (35-52); HEMOGLOBIN 7.8 g/dL (11.5-16.0); LYMPHOCYTES # (AUTO) 1.2 10^3/uL (1.0-4.0); LYMPHOCYTES % (AUTO) 16 % (12-44); MEAN CORPUSCULAR HEMOGLOBIN 30 pg (25-34); MEAN CORPUSCULAR HGB CONC 31 g/dL (32-36); MEAN CORPUSCULAR VOLUME 95 fL (80-99); MONOCYTES % (AUTO) 12 % (0-12); NEUTROPHILS # (AUTO) 4.2 10^3/uL (1.8-7.8); NEUTROPHILS % (AUTO) 55 % (42-75); PLATELET COUNT 130 10^3/uL (130-400); WHITE BLOOD COUNT 7.6 10^3/uL (4.3-11.0)
[~2020-10-02 08:56] MED LIST changes: +ESCI20TA39 PO; -ESCI20TA56 PO
[2020-10-02 09:57] LABS: BASOPHILS # (AUTO) 0.2 10^3/uL (0.0-0.1); BASOPHILS % (AUTO) 2 % (0-10); EOSINOPHILS # (AUTO) 0.2 10^3/uL (0.0-0.3); EOSINOPHILS % (AUTO) 3 % (0-10); HEMATOCRIT 25 % (35-52); HEMOGLOBIN 7.9 g/dL (11.5-16.0); LYMPHOCYTES # (AUTO) 1.3 10^3/uL (1.0-4.0); LYMPHOCYTES % (AUTO) 17 % (12-44); MEAN CORPUSCULAR HEMOGLOBIN 30 pg (25-34); MEAN CORPUSCULAR HGB CONC 32 g/dL (32-36); MEAN CORPUSCULAR VOLUME 94 fL (80-99); MONOCYTES # (AUTO) 1.1 10^3/uL (0.0-1.0); MONOCYTES % (AUTO) 14 % (0-12); NEUTROPHILS # (AUTO) 3.8 10^3/uL (1.8-7.8); NEUTROPHILS % (AUTO) 50 % (42-75); PLATELET COUNT 149 10^3/uL (130-400); WHITE BLOOD COUNT 7.7 10^3/uL (4.3-11.0)
[2020-10-02 12:03] LABS: ALANINE AMINOTRANSFERASE 20 U/L (0-55); ALBUMIN 3.5 GM/DL (3.2-4.5); ALKALINE PHOSPHATASE 98 U/L (40-136); BILIRUBIN,TOTAL 1.2 MG/DL (0.1-1.0); BUN/CREATININE RATIO 17; CALCIUM 8.8 MG/DL (8.5-10.1); CARBON DIOXIDE 22 MMOL/L (21-32); CHLORIDE 105 MMOL/L (98-107); CREATININE SERUM 0.72 MG/DL (0.60-1.30); GFR ESTIMATED > 60; GLUCOSE 111 MG/DL (70-105); POTASSIUM 4.3 MMOL/L (3.6-5.0); SODIUM 136 MMOL/L (135-145); TOTAL PROTEIN 7.3 GM/DL (6.4-8.2)
== END 2020-11-18 | disposition home or self-care (01) ==
LOC: ONC 08:56
PROVIDERS: ATTEND Internal Medicine Hematology & Oncology
DX: C18.2 Malignant neoplasm of ascending colon (principal); M19.91 Primary osteoarthritis, unspecified site; D61.818 Other pancytopenia; F17.210 Nicotine dependence, cigarettes, uncomplicated; Z79.899 Other long term (current) drug therapy; K74.60 Unspecified cirrhosis of liver; R16.1 Splenomegaly, not elsewhere classified; Z86.19 Personal history of other infectious and parasitic diseases; Z96.651 Presence of right artificial knee joint
CPT/HCPCS: 38222; 80053; 82607; 82728; 82746; 83540; 83615; 85007; 85025; 85027; 85045; 85055; 99213